=== PATIENT | male | born 1970 | race Caucasian/White ===

== ENCOUNTER → 2016-11-06 | Outpatient (CLI) | payer OTHER ==
[2016-11-06 13:11] LABS: ALT/SGPT 40 U/L (12-78); AST/SGOT 18 U/L (15-37); BLOOD UREA NITROGEN 14 mg/dl (7-18); BUN/CREATININE RATIO 15.2 (10-20); CALCIUM 9.1 mg/dl (8.5-10.1); CARBON DIOXIDE 28 mmol/L (21-32); CHLORIDE 109 mmol/L (98-107); CREATININE 0.89 mg/dl (0.60-1.40); GLUCOSE 93 mg/dl (70-99); POTASSIUM 3.8 mmol/L (3.5-5.1); SODIUM 142 mmol/L (136-145)
[2016-11-06 13:14] LABS: ALB/GLOB RATIO 1.3 (0.9-2); ALKALINE PHOSPHATASE 69 U/L (45-117)
[2016-11-06 13:15] LABS: CHOLESTEROL/HDL RATIO 3.8
== END | disposition home or self-care (01) ==
LOC: C.LABPVFM 07:59
PROVIDERS: ATTEND Family Medicine
DX: E78.5 Hyperlipidemia, unspecified (principal)

== ENCOUNTER → 2017-06-01 | Outpatient (CLI) | payer OTHER ==
[2017-06-01 18:13] LABS: BLOOD UREA NITROGEN 11 mg/dl (7-18); CALCIUM 8.9 mg/dl (8.5-10.1); CARBON DIOXIDE 26 mmol/L (21-32); CREATININE 0.97 mg/dl (0.60-1.40); GLUCOSE 91 mg/dl (70-99); SODIUM 139 mmol/L (136-145)
== END | disposition home or self-care (01) ==
LOC: C.LABPVFM 15:49
PROVIDERS: ATTEND Family Medicine
DX: E78.5 Hyperlipidemia, unspecified (principal)

== ENCOUNTER → 2017-07-27 | Outpatient (CLI) | payer OTHER ==
--- NOTE | 2017-07-27 11:18 | DIAGNOSTIC IMAGING REPORT ---
TEMPORAL BONE CT HISTORY: H92.09 left-sided [id number] Acute otitis externapatient has pain out o TECHNIQUE: Multiaxial CT images of the temporal bones were performed and reformatted in the coronal plane without the use of image is contrast. COMPARISON STUDY: None. FINDINGS: On the right, the external auditory canal is patent and there are no soft tissue masses. The middle ear cavity and mastoid air cells are clear. The ossicles are intact. No evidence for inner ear dysplasia. The 7th cranial nerve describes a normal course. The scutum is intact. On the left, the external auditory canal is patent and there are no soft tissue masses. The middle ear cavity and mastoid air cells are clear. The ossicles are intact. No evidence for inner ear dysplasia. The 7th cranial nerve describes a normal course. The scutum is intact. The visualized brain parenchyma is unremarkable. There is a 1 cm anterior nasal septal defect. IMPRESSION: 1. Normal bilateral temporal bones. 2. A 1 cm nasal septal defect. Electronically signed by: Edmund Cota M.D. 07/27/2017 11:16 AM Dictated Date/Time: 07/27/2017 11:03 AM
== END | disposition home or self-care (01) ==
LOC: C.CTS 10:37
PROVIDERS: ATTEND Physician Assistant
DX: H60.509 Unspecified acute noninfective otitis externa, unspecified ear (principal); H92.09 Otalgia, unspecified ear

== ENCOUNTER → 2017-08-30 | Outpatient (CLI) | payer OTHER ==
[2017-08-30 14:05] LABS: BASO % 0.1 %; BASO ABS # 0.01 K/uL (0-0.2); EOS % 1.3 %; EOS ABS # 0.11 K/uL (0-0.5); HEMATOCRIT 44.6 % (42-52); HEMOGLOBIN 15.7 g/dL (14.0-18.0); IG# 0.04 K/uL (0.00-0.02); LYMPH % 17.2 %; LYMPH ABS # 1.49 K/uL (1.2-3.4); MEAN CELL VOLUME 89.9 fL (80-100); MEAN CORPUSCULAR HEMOGLOBIN 31.7 pg (25-34); MEAN CORPUSCULAR HGB CONC 35.2 g/dl (32-36); MEAN PLATELET VOLUME 9.5 fL (7.4-10.4); MONO % 5.3 %; MONO ABS # 0.46 K/uL (0.11-0.59); NEUT % 75.6 %; NEUT ABS # 6.55 K/uL (1.4-6.5); PLATELET COUNT 335 K/uL (130-400); RED CELL DISTRIBUTION WIDTH CV 13.5 % (11.5-14.5); RED CELL DISTRIBUTION WIDTH SD 44.5 fL (36.4-46.3); WHITE BLOOD COUNT 8.66 K/uL (4.8-10.8)
== END | disposition home or self-care (01) ==
LOC: C.LABPVFM 09:49
PROVIDERS: ATTEND Physician Assistant
DX: H92.09 Otalgia, unspecified ear (principal); M79.2 Neuralgia and neuritis, unspecified

== ENCOUNTER → 2017-09-08 | Outpatient (CLI) | payer OTHER ==
[~2017-09-08] MED LIST: GADAVIST IV PRN
--- NOTE | 2017-09-08 18:29 | DIAGNOSTIC IMAGING REPORT ---
MRI OF THE BRAIN COMBO TRIGEMINAL NERVE PROTOCOL CLINICAL HISTORY: Facial pain. COMPARISON STUDY: MRI of the brain dated 07/26/2014. TECHNIQUE: MRI of the brain was performed utilizing various T1 and T2-weighted sequences in the axial, sagittal, and coronal planes. Contrast-enhanced sequences were acquired following the administration of 6.5 cc of Gadavist. Additional high-resolution imaging was performed through the skull base both pre and post contrast to assess the trigeminal nerves. FINDINGS: Brain parenchyma: There are scattered foci of T2 signal abnormality seen throughout the subcortical and periventricular white matter. There is no associated abnormal enhancement on the postcontrast sequences. There is no hemorrhage or mass effect. There is no restricted diffusion to suggest acute ischemia. No enhancing mass lesion is identified on the postcontrast images. Cruz-white matter differentiation is preserved. No extra-axial fluid collection is seen. The cerebellar tonsils are normal in configuration. Ventricles, sulci, and cisterns: Normal in configuration. Trigeminal nerves: The trigeminal nerves are normal in morphology and signal intensity. These appear symmetric bilaterally. No abnormal enhancement is identified on the postcontrast sequences. No mass lesion is suggested in the cerebellopontine angle bilaterally. Pituitary and sella: Unremarkable. Intracranial vasculature: Normal flow voids are maintained at the skull base. Orbits: The bony orbits are grossly intact. Orbital contents are normal in appearance. Sinuses and mastoids: Clear. Calvarium: Unremarkable. Cervical cord: Partially visualized cervical spinal cord is normal in morphology and signal intensity. IMPRESSION: 1. There is no acute intracranial abnormality. 2. Unremarkable MRI assessment of the trigeminal nerves. 3. There are scattered foci of T2 signal abnormality throughout the subcortical and periventricular white matter. These are nonspecific and could represent mild age advanced microangiopathic change. This could also be seen in the setting of a demyelinating disorder such as multiple sclerosis or less likely Lyme disease. These have not significantly changed from the 07/26/2014 examination and clinical correlation will be essential. There is no associated abnormal enhancement on the postcontrast sequences. Electronically signed by: José Manuel Licona M.D. 09/08/2017 6:27 PM Dictated Date/Time: 09/08/2017 6:20 PM
== END | disposition home or self-care (01) ==
LOC: C.MRIBC 11:16
PROVIDERS: ATTEND Physician Assistant
DX: H92.09 Otalgia, unspecified ear (principal); R51 Headache; M79.2 Neuralgia and neuritis, unspecified; R93.0 Abnormal findings on diagnostic imaging of skull and head, not elsewhere classified